=== PATIENT | female | born 1990 | race Caucasian/White ===

== ENCOUNTER 2025-03-19 23:29 | Emergency (ER) | payer BC, OTHER ==
[~2025-03-19] VITALS: Ht 167.6 cm; Wt 59.0 kg
[2025-03-19 23:55] VITALS: BP 147/103; TEMP 97.8; O2SAT 98
[2025-03-20] MEDS ORDERED: AMOX-430 PO (00:16)
[2025-03-20] MEDS ORDERED: AMOX/CLAVULANATE 875 MG TABLET ONE (00:21)
[2025-03-20] MEDS: AMOX/CLAVULANATE 875 MG TABLET PO ONE (00:21)
== END 2025-03-20 00:23 | disposition home or self-care (01) ==
LOC: ER 23:35
DX: K02.9 Dental caries, unspecified (principal); F17.200 Nicotine dependence, unspecified, uncomplicated